=== PATIENT | female | born 1960 | race American Indian/Alaskan Native ===

== ENCOUNTER 2016-10-09 06:38 | Day surgery (SDC) | payer OTHER ==
[2016-10-04 08:19] VITALS: BMI 39.4
[2016-10-09 07:42] LABS: HEMATOCRIT 38.8 % (34.0-47.0); MEAN CELL VOLUME 94.1 fl (81.0-99.0); MEAN CORPUSCULAR HGB CONC 35.1 g/dL (33.0-37.0); RED CELL DISTRIBUTION WIDTH 14.3 % (11.5-14.5); WHITE BLOOD COUNT 5.4 K/uL (4.8-10.8)
[2016-10-09 07:48] LABS: BLOOD UREA NITROGEN 14 mg/dl (7-17); CALCIUM 9.7 mg/dL (8.4-10.2); CARBON DIOXIDE 27 mmol/L (22-30); CHLORIDE 99 mmol/L (98-107); GFR AFRICAN-AMERICAN > 60; GLUCOSE,RANDOM 131 mg/dL (65-105); SODIUM 144 mmol/l (132-148)
[2016-10-09 07:55] LABS: PARTIAL THROMBOPLASTIN TIME 29.8 SECONDS (23.3-32.5)
[2016-10-09] MEDS ORDERED: Absorbable Gelatin Sponge Size 100 ONE (08:34)
[2016-10-09] MEDS ORDERED: Morphine 1 mg/ml preservative-free Inj(Duramorph) ONE (08:34)
[2016-10-09] MEDS ORDERED: MethylPREDNISolone Depo 40 mg/ml Inj ONE (08:34)
[2016-10-09] MEDS ORDERED: Bupivacaine 0.5% Inj(30mL) ONE (08:34)
[2016-10-09] MEDS ORDERED: Thrombin Topical 5,000 IU Spray Kit ONE (08:34)
[2016-10-09] MEDS ORDERED: Bacitracin Ointment 30 GM TUBE ONE (08:34)
[2016-10-09] MEDS ORDERED: Propofol 10 mg/ml Inj (20 ML) ONE ×2 (10:28→11:37)
[2016-10-09] MEDS ORDERED: Succinylcholine 200 mg/10 ml Inj IV ONE (10:39)
[2016-10-09] MEDS ORDERED: Lactated Ringer's 1,000 ML IV ONE ×2 (11:16→14:05)
[2016-10-09] MEDS ORDERED: Rocuronium 10 mg/ml (5 ml) ONE (11:24)
--- NOTE | 2016-10-09 11:28 | CARD ---
APPROVED REPORT EKG Measurement Heart [id number] <Conclusion> Normal sinus rhythm Prolonged QT Abnormal ECG
[2016-10-09] MEDS ORDERED: Lidocaine 1% Inj (20ml) ONE (11:30)
[2016-10-09] MEDS ORDERED: Lidocaine 1% (50 ml) Vial SC ONE (12:04)
[2016-10-09] MEDS ORDERED: Dexamethasone 4 mg/1 ml ONE (12:14)
[2016-10-09] MEDS ORDERED: Neostigmine Methylsulfate 2 MG/2 ML ML IV ONE (12:26)
[2016-10-09] MEDS ORDERED: MethylPREDNISolone Depo 40 mg/ml Inj INJ ONE (12:33)
[2016-10-09] MEDS ORDERED: Bacitracin OINT 15GM TOP ONE (12:40)
[2016-10-09] MEDS ORDERED: HYDROmorphone 0.5 mg/0.5 ml ISec IVP PRN (12:51)
[2016-10-09] MEDS ORDERED: Lactated Ringer's 1,000 ML IV SCH (13:00)
--- NOTE | 2016-10-09 13:23 | PCM.SURG1 ---
Surgeon's Initial Post Op Note - Surgeon's Notes Surgeon: Mariano Enterprise Account Executive: NESTOR Hinson Type of Anesthesia: General Endo, Spinal Anesthesia Administered By: DR Ocampo Pre-Operative Diagnosis: primary O/A L knee-medial/patellofemoral compartments Operative Findings: primary O/A medial/patellofemoral comparments. tear medial/ laterAL MENISCUS. TRICOMPARTMENTAL SYNOVITIS Post-Operative Diagnosis: ABOVE Operation Performed: ARTHROSCOPIC MICROFRACTURE- MEDIAL FEMORAL CONDYLE/FEMORal trochlea. arthroscopic partial medial/lateral meniscectomy. arthroscopic partial tricompartmentasl synovectomy. intra-articular injection Specimen/Specimens Removed: cartilage/synoviuim/bone Estimated Blood Loss: EBL {In ML}: 5 Blood Products Given: N/A Drains Used: No Drains Post-Op Condition: Good Date of Surgery/Procedure: 10/09/16 Time of Surgery/Procedure: 12:05 (time in room/anaesthesia indcution time 11:16)
[2016-10-09 13:40] VITALS: RESP 18
[2016-10-09 16:49] VITALS: BP 120/77; PULSE 72; TEMP 98; O2SAT 96
--- NOTE | 2016-10-11 10:36 | OP ---
PROCEDURE DATE: 10/09/2016 PREOPERATIVE DIAGNOSIS: Osteoarthritis of the right knee. POSTOPERATIVE DIAGNOSES: Osteoarthritis of the right knee, with complete chondral damage to the femo ral trochlea, medial femoral condyle, tear medial meniscus, tear lateral meniscus, tricompartmental s ynovitis. PROCEDURES: 1. Surgical arthroscopy, microfracture, medial femoral condyle, femoral trochlea. 2. Surgical arthroscopy, partial tricompartmental synovectomy. 3. Surgical arthroscopy, partial medial meniscectomy, partial lateral meniscectomy. 4. Intraarticular injection. SURGEON: Joshua Quintana MD GAS PROVER: Melissa Francois, Certified Registered Nursing Fib[employer] Tube Molder. ANESTHESIA: General endotracheal anesthesia. COMPLICATIONS: None. DRAINS: None. OPERATIVE INDICATION: The patient is a 56-year-old woman who presents with right knee pain, restrict ed range of motion for a long period of time. The patient was treated conservatively and failed cons ervative management. The concept of joint replacement because of her severe medial compartment and p atellofemoral arthritis was discussed. The possibility of mechanical failure, infection, thromboembo lic disease, secondary or tertiary surgery was discussed. The patient can no longer stand the discom fort and wished the surgery to be accomplished. Again, the possibility of mechanical failure, infect ion, thromboembolic disease, secondary or tertiary surgery was discussed. The patient can no longer stand the discomfort and wished the surgery to be accomplished. The concept that she will indeed nee d replacement arthroplasty in the future is discussed. The concept that the more conservative proced ure arthroscopy would be accomplished first was discussed. Again, the possibility of mechanical fail ure, infection, thromboembolic disease, secondary or tertiary surgery is discussed. OPERATIVE PROCEDURE: After having obtained informed consent, after having identified side, site and procedure and a critical pause/timeout, after the satisfactory induction of the anesthetic, the patie nt identified, in the supine position with all bony prominences well padded, the right lower extremit y was prepped and free draped in the usual fashion for lower extremity surgery. The tourniquet had b een applied, but is not yet inflated. The Wideo knee palmer is employed as well. After exsanguina ting the limb using a 6 inch Esmarch bandage, the tourniquet, which had been applied is inflated to 3 50 mmHg. The joint is insufflated with 10 mL of 1% lidocaine without epinephrine. Using a #11 blade followed by spreading, followed by introduction of blunt trocar, the arthroscope was introduced. Ex amination of the joint commences. There is found to be severe tricompartmental synovitis, was found to be complete articular cartilage loss in the medial femoral condyle and femoral trochlea. Triangul ation is accomplished using #18 gauge spinal needle followed by #11 blade, followed by spreading, fol lowed by introduction of blunt trocar. With the arthroscope introduced, a careful partial tricompart mental synovectomy is completed using a 4.5 [place] shaver. Bleeding points were controlled with the Arthrocare wand. With the arthroscope anterolaterally, a careful partial tricompartmental synovecto my was completed, again using the [place] surface wand. Bleeding points were controlled with the giovana ctrocautery. This having been accomplished, with the arthroscope in the anterolateral portal with th e surgeon exerting a gentle valgus stress, there was found to be complete denudation of the medial fe moral condyle, femoral trochlea with severe arthritic change in the medial compartment and patellofem oral joint. With the arthroscope anterolaterally, with the surgeon exerting a gentle valgus stress, a careful partial tricompartmental synovectomy having been accomplished, there was found to be a tear of the inner free edge of the medial meniscus extending from the inner free edge to the mid aspect. Using a combination of the straight biting basket forceps and the side-biting basket forceps, a part ial medial meniscectomy is accomplished. The inner free edge is smoothed using the Arthrocare wand. The anterior cruciate ligament is found to be intact. With the knee in figure-4 position, the later al meniscus was exposed. Lateral compartment was found to be exposed and there was found to be a tea r of the inner free edge with the overall articular cartilage in the lateral compartment is acceptabl e. A partial lateral meniscectomy is accomplished using a combination of straight biting basket forc eps and the side-biting basket forceps. A partial lateral meniscectomy having been completed, the in ner free edge is smoothed using the [place] surface wand using a combination of straight biting baske t forceps and side biting basket forceps. With the arthroscope anterolaterally, a partial lateral me niscectomy is accomplished. The inner free edge is smoothed using the [place] surface wand. At this point in time, the denuded articular cartilage in the femoral trochlea and medial femoral condyle wa s exposed. An initial mechanical chondroplasty is accomplished using the arthroscopic shaver. The s econdary microfracture is accomplished using the arthroscopic pick. The arthroscopic pick is placed in a honeycomb fashion through the subchondral plate to the subchondral bone in both the medial femor al condyle and femoral trochlea. The wound is thoroughly irrigated. The bleeding points were contro lled with the Arthrocare wand. The wound is thoroughly irrigated. Closure is in layers with interru pted Vicryl and nylon. Intra-articular injection is offered, using Marcaine and Depo-Medrol, and Turner Aguilera compression dressing and knee immobilizer was applied. Joshua Quintana MD cc: [id number] TT: 10/11/2016 10:35:23 cam
== END 2016-10-09 16:55 | disposition home or self-care (01) ==
LOC: H.OPSURG 06:38
PROVIDERS: ATTEND Orthopaedic Surgery
DX: M17.11 Unilateral primary osteoarthritis, right knee (principal); E11.9 Type 2 diabetes mellitus without complications; J45.909 Unspecified asthma, uncomplicated; E78.5 Hyperlipidemia, unspecified; G47.33 Obstructive sleep apnea (adult) (pediatric); M06.9 Rheumatoid arthritis, unspecified; M23.261 Derangement of other lateral meniscus due to old tear or injury, right knee; M23.231 Derangement of other medial meniscus due to old tear or injury, right knee
CPT/HCPCS: 29876; 29879; 29880; 36415; 80048; 82948; 85027; 85610; 85730; 88305; 93005; G8978; G8979; G8980; J0171; J0330; J1030; J1100; J1170; J2001; J2270; J2704; J2710; J3010; J7030; J7120; L1830